=== PATIENT | male | born 2000 | race Caucasian/White ===

== ENCOUNTER 2023-03-23 20:00 | Emergency (ER) | payer SELFPAY ==
[~2023-03-23] VITALS: Ht 172.7 cm; Wt 90.7 kg
[2023-03-23 20:58] VITALS: BP_SYST 119
--- NOTE | 2023-03-23 20:58 | NUR ---
Triaged and placed patient back to the waiting room. No acute respiratory distress at this time. VSS. Informed patient to notify ED staff for any changes in condition or worsening of symptoms while waiting to be seen by a provider. Patient verbalized understanding.
--- NOTE | 2023-03-23 21:39 | NUR ---
CALLED PATIENT NO ANSWER
--- NOTE | 2023-03-23 22:02 | NUR ---
Patient placed in ER bed 6 for evaluation. Report given to Radha VALDIVIA for continuity of care. Bed in lowest position with side rails up. Instructed patient to notify ED staff for any changes in condition or worsening of symptoms. Patient verbalized understanding.
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
[2023-03-23] MEDS ORDERED: IBUP-1969 PO (22:59)
[2023-03-23] MEDS ORDERED: AUG875 PO (23:00)
[2023-03-23 23:11] VITALS: BP_SYST 132
--- NOTE | 2023-03-23 23:12 | NUR ---
Patient given written and verbal discharge instructions and verbalizes understanding. ER MD discussed with patient the results and treatment provided. Patient in stable condition. ID arm band removed. Rx of IBUPROFEN AND AUGMENTIN given. Patient educated on pain management and to follow up with PMD. Pain Scale 0/10. Opportunity for questions provided and answered. Medication side effect fact sheet provided.
== END 2023-03-23 23:11 | disposition home or self-care (01) ==
LOC: SED 20:00 → EDSEX 20:00 → SED 23:11
DX: S02.2XXA Fracture of nasal bones, initial encounter for closed fracture (principal); S09.90XA Unspecified injury of head, initial encounter; Z79.899 Other long term (current) drug therapy; Y04.8XXA Assault by other bodily force, initial encounter; Y93.89 Activity, other specified; Y92.89 Other specified places as the place of occurrence of the external cause; Y99.8 Other external cause status
CPT/HCPCS: 70450-TC; 76376; 99284